=== PATIENT | female | born 1975 | race Caucasian/White ===

== ENCOUNTER 2017-09-25 11:10 | Emergency (ER) | payer OTHER ==
[~2017-09-25] VITALS: Ht 170.2 cm; Wt 91.6 kg
[~2017-09-25 11:10] MED LIST: TOPI50TA4 PO; [UNRECOGNIZED DRUG - OTHER]
[2017-09-25 11:32] VITALS: BP 134/72; PULSE 72; RESP 18; TEMP 97.6; O2SAT 95
[2017-09-25] MEDS ORDERED: MONOTAB PO (11:44)
[2017-09-25] MEDS ORDERED: GABA100C4 PO (11:44)
[2017-09-25] MEDS ORDERED: METF500T PO (11:44)
[2017-09-25] MEDS ORDERED: PANT20TA2 PO (11:44)
[2017-09-25] MEDS ORDERED: PROP20TA3 PO (11:44)
[2017-09-25] MEDS ORDERED: SODIUM CHLORIDE 0.9% FLUSH 10 ML FLUSH IVF PRN (11:45)
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
[2017-09-25] MEDS ORDERED: CYCL10TA PO (13:32)
[2017-09-25] MEDS ORDERED: NAPR500 PO (13:32)
== END 2017-09-25 13:38 | disposition home or self-care (01) ==
LOC: PHEFT 11:10
DX: S16.1XXA Strain of muscle, fascia and tendon at neck level, initial encounter (principal); M54.6 Pain in thoracic spine; M25.551 Pain in right hip; V89.2XXA Person injured in unspecified motor-vehicle accident, traffic, initial encounter; E11.9 Type 2 diabetes mellitus without complications; Z79.84 Long term (current) use of oral hypoglycemic drugs; Z86.69 Personal history of other diseases of the nervous system and sense organs
CPT/HCPCS: 71045; 72050; 72170; 99284